=== PATIENT | female | born 1965 | race African-American/Black ===

== ENCOUNTER 2018-12-05 18:02 | Inpatient (IN) | payer BC ==
[2018-12-05] VITALS (8 sets, daily range): BP systolic 179–230; BP diastolic 90–137
[~2018-12-05] VITALS: Ht 162.6 cm; Wt 91.7 kg
[2018-12-05] MEDS ORDERED: 0.9 % SODIUM CHLORIDE 10 ML DISP.SYRIN. IV PRN (19:45)
[2018-12-05] MEDS ORDERED: hydrALAZINE 20 MG/ML VIAL. IV ONE (20:00)
[2018-12-05] MEDS ORDERED: amLODIPine BESYLATE 5 MG TABLET PO ONE (20:00)
[2018-12-05 20:06] LABS: BASO # 0.1 x10^3/uL (0.0-0.2); BASO % 1 % (0-3); EOS # 0.2 x10^3/uL (0.0-0.7); EOS % 2 % (0-3); HEMATOCRIT 45.8 % (36.0-47.0); LYMPH # 3.6 x10^3/uL (1.0-4.8); LYMPH % 34 % (24-48); MEAN CORPUSCULAR HEMOGLOBIN 27 pg (25-35); MEAN CORPUSCULAR HGB CONC 33 g/dL (31-37); MEAN CORPUSCULAR VOLUME 83 fL (79-100); MONO # 0.6 x10^3/uL (0.0-1.1); MONO % 6 % (0-9); NEUT # 6.3 x10^3uL (1.8-7.7); NEUT % 58 % (31-73); PLATELET COUNT 231 x10^3/uL (140-400); RED BLOOD COUNT 5.53 x10^6/uL (3.50-5.40); RED CELL DISTRIBUTION WIDTH 15.1 % (11.5-14.5); WHITE BLOOD COUNT 10.9 x10^3/uL (4.0-11.0)
[2018-12-05 20:14] LABS: ALBUMIN/GLOBULIN RATIO 0.9 (1.0-1.7); CALCIUM 9.2 mg/dL (8.5-10.1); CREATININE 1.1 mg/dL (0.6-1.0); GFR 63.1; POTASSIUM 3.3 mmol/L (3.5-5.1); TOTAL BILIRUBIN 0.4 mg/dL (0.2-1.0); TOTAL PROTEIN 8.6 g/dL (6.4-8.2)
[2018-12-05 20:42] LABS: AMORPHOUS SEDIMENT,UR PRESENT /HPF; BACTERIA,URINE FEW /HPF (0-FEW); BILIRUBIN,URINE NEG (NEG); CLARITY,URINE CLEAR; COLOR,URINE STRAW; GLUCOSE,URINE 500 mg/dL (NEG); NITRITE,URINE POS (NEG); SQUAMOUS EPITHELIAL CELL,UR OCC /LPF; UROBILINOGEN,URINE 0.2 mg/dL (0.2 mg/dL)
--- NOTE | 2018-12-05 21:00 | PHYS DOC ---
Past History Past Medical History: Hypertension, Uterine Fibroids Alcohol Use: None Drug Use: None Adult General Chief Complaint Chief Complaint: HYPERTENSION HPI HPI Patient is a 53 year old female who presents with complaint of high blood pressure. Patient states that she was seen at her primary care physician's office today and was noted to have high blood pressure. Patient states that she was started on metoprolol at that time to to address her blood pressure. Patient states that she is supposed to be taking Norvasc, atenolol, and Maxide, however she has been off this medication for over a month and has not have this addressed during that time. Patient states that currently she is not experiencing headache, vision changes, chest pain, shortness of breath, or unilateral weakness. Due to continued high blood pressure she came to the emergency department to have this addressed. Review of Systems Review of Systems Constitutional: Denies fever or chills [] Eyes: Denies change in visual acuity, redness, or eye pain [] HENT: Denies nasal congestion or sore throat [] Respiratory: Denies cough or shortness of breath [] Cardiovascular: Denies chest pain or edema[] GI: Denies abdominal pain, nausea, vomiting, bloody stools or diarrhea [] : Denies dysuria or hematuria [] Musculoskeletal: Denies back pain or joint pain [] Integument: Denies rash or skin lesions [] Neurologic: Denies headache, focal weakness or sensory changes [] All other systems were reviewed and found to be within normal limits, except as documented in this note. Current Medications Current Medications Current Medications Medications (Trade) Dose Ordered Sig/Rei Start Time Stop Time Status Last Admin Dose Admin Amlodipine Besylate (Norvasc) 5 mg 1X ONCE 12/05/18 20:00 12/05/18 20:01 DC 12/05/18 19:54 5 MG Hydralazine HCl (Apresoline) 10 mg 1X ONCE 12/05/18 20:00 12/05/18 20:01 DC 12/05/18 19:54 10 MG Sodium Chloride (Normal Saline Flush) 10 ml QSHIFT PRN 12/05/18 19:45 12/05/18 19:54 10 ML Allergies Allergies Allergies Coded Allergies Type Severity Reaction Last Updated Verified No Known Drug Allergies 12/05/18 No Physical Exam Physical Exam Constitutional: Well developed, well nourished, no acute distress, non-toxic appearance. [] HENT: Normocephalic, atraumatic, bilateral external ears normal, oropharynx moist, no oral exudates, nose normal. [] Eyes: PERRLA, EOMI, conjunctiva normal, no discharge. [] Neck: Normal range of motion, no tenderness, supple, no stridor. [] Cardiovascular:Heart rate regular rhythm, no murmur [] Lungs & Thorax: Bilateral breath sounds clear to auscultation [] Abdomen: Bowel sounds normal, soft, no tenderness, no masses, no pulsatile masses. [] Skin: Warm, dry, no erythema, no rash. [] Back: No tenderness, no CVA tenderness. [] Extremities: No tenderness, no cyanosis, no clubbing, ROM intact, no edema. [] Neurologic: Alert and oriented X 3, normal motor function, normal sensory function, no focal deficits noted. [] Current Patient Data Vital Signs Vital Signs Date Time Temp Pulse Resp B/P (MAP) Pulse Ox O2 Delivery O2 Flow Rate FiO2 12/05/18 19:54 93 235/104 12/05/18 19:00 98.6 16 98 Room Air Lab Results Laboratory Tests Test 12/05/18 19:34 White Blood Count 10.9 x10^3/uL (4.0-11.0) Red Blood Count 5.53 x10^6/uL (3.50-5.40) H Hemoglobin 15.0 g/dL (12.0-15.5) Hematocrit 45.8 % (36.0-47.0) Mean Corpuscular Volume 83 fL (79-100) Mean Corpuscular Hemoglobin 27 pg (25-35) Mean Corpuscular Hemoglobin Concent 33 g/dL (31-37) Red Cell Distribution Width 15.1 % (11.5-14.5) H Platelet Count 231 x10^3/uL (140-400) Neutrophils (%) (Auto) 58 % (31-73) Lymphocytes (%) (Auto) 34 % (24-48) Monocytes (%) (Auto) 6 % (0-9) Eosinophils (%) (Auto) 2 % (0-3) Basophils (%) (Auto) 1 % (0-3) Neutrophils # (Auto) 6.3 x10^3uL (1.8-7.7) Lymphocytes # (Auto) 3.6 x10^3/uL (1.0-4.8) Monocytes # (Auto) 0.6 x10^3/uL (0.0-1.1) Eosinophils # (Auto) 0.2 x10^3/uL (0.0-0.7) Basophils # (Auto) 0.1 x10^3/uL (0.0-0.2) Urine Collection Type Unknown Urine Color Straw Urine Clarity Clear Urine pH 6.5 Urine Specific [place] 1.025 Urine Protein >100 mg/dl (NEG-TRACE) Urine Glucose (UA) 500 mg/dL (NEG) Urine Ketones (Stick) Neg mg/dL (NEG) Urine Blood Small (NEG) Urine Nitrite Pos (NEG) Urine Bilirubin Neg (NEG) Urine Urobilinogen Dipstick 0.2 mg/dL (0.2 mg/dL) Urine Leukocyte Esterase Neg (NEG) Urine RBC 1-2 /HPF (0-2) Urine WBC 1-4 /HPF (0-4) Urine Squamous Epithelial Cells Occ /LPF Urine Amorphous Sediment Present /HPF Urine Bacteria Few /HPF (0-FEW) Urine Mucus Slight /LPF Sodium Level 137 mmol/L (136-145) Potassium Level 3.3 mmol/L (3.5-5.1) L Chloride Level 100 mmol/L (98-107) Carbon Dioxide Level 25 mmol/L (21-32) Anion Gap 12 (6-14) Blood Urea Nitrogen 20 mg/dL (7-20) Creatinine 1.1 mg/dL (0.6-1.0) H Estimated GFR (Cockcroft-Gault) 63.1 BUN/Creatinine Ratio 18 (6-20) Glucose Level 228 mg/dL (70-99) H Calcium Level 9.2 mg/dL (8.5-10.1) Total Bilirubin 0.4 mg/dL (0.2-1.0) Aspartate Amino Transferase (AST) 16 U/L (15-37) Alanine Aminotransferase (ALT) 29 U/L (14-59) Alkaline Phosphatase 113 U/L (46-116) Total Protein 8.6 g/dL (6.4-8.2) H Albumin 4.0 g/dL (3.4-5.0) Albumin/Globulin Ratio 0.9 (1.0-1.7) L EKG EKG Interpreted by me: Heart rate 88, sinus rhythm, normal intervals, leftward axis , no acute ST/T-wave abnormalities present[] Radiology/Procedures Radiology/Procedures Not performed[] Course & Med Decision Making Course & Med Decision Making Pertinent Labs and Imaging studies reviewed. (See chart for details) Patient given IV hydralazine and oral Norvasc in the emergency department. Despite treatment, repeat blood pressure check is 197/113. The patient's blood pressure maintains that critical levels, thus patient was initiated on Cardene drip to control blood pressure. I spoke with Dr. Carnes who accepted care of patient in hospital for continued treatment of accelerated hypertension. Patient also found have evidence of urinary tract infection and started on Rocephin for treatment. Critical care time excluding procedures: 45 minutes Dragon Disclaimer Dragon Disclaimer This electronic medical record was generated, in whole or in part, using a voice recognition dictation system. Departure Departure: Impression: Primary Impression: Accelerated hypertension Additional Impression: Urinary tract infection Disposition: 09 ADMITTED INPATIENT Admitting Physician: Lucius Carnes Condition: GUARDED Referrals: NON,STAFF (PCP) Problem Qualifiers Additional Impression: Urinary tract infection Urinary tract infection type: site unspecified Hematuria presence: without hematuria Qualified Codes: N39.0 - Urinary tract infection, site not specified COURTNEY FLORES MD Dec 05, 2018 21:00
[2018-12-05] MEDS ORDERED: ACETAMINOPHEN 325 MG TABLET PO PRN (21:15)
[2018-12-05] MEDS ORDERED: ONDANSETRON PF 4 MG/2 ML VIAL. IV PRN (21:15)
[2018-12-05] MEDS ORDERED: IV NORMAL SALINE 50ML 50 ML ONE (21:31)
[2018-12-05] MEDS ORDERED: cefTRIAXone SODIUM 1 GM VIAL IV ONE (21:31)
[2018-12-05] MEDS: IV NORMAL SALINE 1,000ML 1,000 ML IV SCH (21:38)
[2018-12-05] MEDS ORDERED: POTASSIUM CHLORIDE 20 MEQ TABLET.ER. PO ONE (23:15)
[2018-12-06] VITALS (35 sets, daily range): BP systolic 149–199; BP diastolic 69–110
[2018-12-06] MEDS ORDERED: TRAM50TA PO (00:04)
[2018-12-06] MEDS ORDERED: ATEN25TA42 PO (00:04)
[2018-12-06] MEDS ORDERED: TEMA15CA PO (00:04)
[2018-12-06] MEDS ORDERED: ESOM40CA PO (00:04)
[2018-12-06] MEDS ORDERED: TRIA1CAP3 PO (00:04)
[2018-12-06] MEDS ORDERED: AMLO10TA6 PO (00:04)
[2018-12-06 06:46] LABS: BASO # 0.1 x10^3/uL (0.0-0.2); BASO % 1 % (0-3); CALCIUM 8.9 mg/dL (8.5-10.1); EOS # 0.2 x10^3/uL (0.0-0.7); EOS % 2 % (0-3); GFR 70.5; HEMATOCRIT 42.5 % (36.0-47.0); HEMOGLOBIN 14.1 g/dL (12.0-15.5); LYMPH # 3.8 x10^3/uL (1.0-4.8); LYMPH % 32 % (24-48); MEAN CORPUSCULAR HEMOGLOBIN 27 pg (25-35); MEAN CORPUSCULAR HGB CONC 33 g/dL (31-37); MEAN CORPUSCULAR VOLUME 83 fL (79-100); MONO # 0.8 x10^3/uL (0.0-1.1); MONO % 7 % (0-9); NEUT # 6.8 x10^3uL (1.8-7.7); NEUT % 58 % (31-73); PLATELET COUNT 209 x10^3/uL (140-400); POTASSIUM 3.6 mmol/L (3.5-5.1); RED BLOOD COUNT 5.15 x10^6/uL (3.50-5.40); RED CELL DISTRIBUTION WIDTH 15.5 % (11.5-14.5); WHITE BLOOD COUNT 11.6 x10^3/uL (4.0-11.0)
[2018-12-06] MEDS ORDERED: HYDR-2155 PO (07:22)
[2018-12-06] MEDS: PANTOPRAZOLE 40 MG TABLET. PO SCH (07:46)
[2018-12-06] MEDS: HYDROcodone/APAP 5/325MG 1 TAB TABLET PO PRN ×3 (07:46→20:31)
[2018-12-06] MEDS ORDERED: amLODIPine BESYLATE 10 MG TABLET PO SCH (09:00)
[2018-12-06] MEDS: TRIAMTERENE/HCTZ 37.5/25MG TABLET. PO SCH ×2 (09:00→19:23)
[2018-12-06] MEDS: IV NORMAL SALINE 1,000ML 1,000 ML IV SCH (10:21)
[2018-12-06] MEDS ORDERED: CARVEDILOL 12.5 MG TABLET PO SCH (10:45)
[2018-12-06] MEDS ORDERED: LISINOPRIL 10 MG TABLET PO SCH (11:15)
[2018-12-06] MEDS: LABETALOL HCL 200 MG TABLET PO SCH ×2 (11:15→20:32)
[2018-12-06] MEDS ORDERED: DEXTROSE 50% 25 GM / 50ML DISP.SYRIN. IV PRN (11:15)
--- NOTE | 2018-12-06 11:28 | RAD ---
Chest, 2 views, 12/06/2018: HISTORY: Malignant hypertension Comparison is made to a study from 07/08/2011. The heart is at the upper limits of normal in size. The pulmonary vascularity is normal. A small unchanged left perihilar nodule is probably a granuloma. No pulmonary infiltrate is seen. There is no evidence of pleural fluid. Moderate hypertrophic spurring is present in the spine. IMPRESSION: No acute cardiopulmonary abnormality is detected. Electronically signed by: Josh Sevilla MD (12/06/2018 11:24 AM) [facility]
[2018-12-06] MEDS: INSULIN LISPRO 300 UNITS/3 ML INSULN.PEN. SQ SCH ×2 (12:35→17:56)
--- NOTE | 2018-12-06 12:42 | RAD ---
Renal ultrasound, 12/06/2018: HISTORY: Accelerated hypertension The right kidney measures 12.1 cm in length while the left kidney measures 11.3 cm. There is no evidence of hydronephrosis or a renal mass. No abnormal perinephric process is seen. The bladder is collapsed and not adequately delineated. IMPRESSION: No significant renal abnormality is detected. Electronically signed by: Josh Sevilla MD (12/06/2018 12:38 PM) [facility]
--- NOTE | 2018-12-06 16:37 | CARD ---
MR#: [id number] Date of Study: 12/06/2018 Ordering Physician: JAMILAH NELSON, Referring Physician: JAMILAH NELSON, Tech: Estefany Urbina RDCS APPROVED REPORT EXAM: Two-dimensional and M-mode echocardiogram with Doppler and color Doppler. Other Information Quality : Good INDICATION Hypertension/HCVD 2D DIMENSIONS RVDd1.9 (2.9-3.5cm)Left Atrium(2D)3.2 (1.6-4.0cm) IVSd1.3 (0.7-1.1cm)Aortic Root(2D)2.8 (2.0-3.7cm) LVDd4.4 (3.9-5.9cm)LVOT Diameter1.9 (1.8-2.4cm) PWd1.0 (0.7-1.1cm)LVDs3.1 (2.5-4.0cm) FS (%) 30.9 %SV52.3 ml LVEF(%)58.7 (>50%) Aortic Valve AoV Peak Favian.193.0cm/sAoV VTI36.4cm AO Peak GR.14.9mmHgLVOT Peak Favian.138.1cm/s LVOT VTI 26.11cmAO Mean GR.8mmHg LES (VMAX)2.89kw3PCP (VTI)2.01cm2 AI P 1/2 Afyt909nj Mitral Valve MV E Kbpjttuh990.6cm/sMV DECEL ZEDI164wj MV A Gqbcasio696.1cm/sE/A Ratio0.8 Tricuspid Valve TR P. Jhlnrqrd783gj/sRAP CPIHJUPO9nvRz TR Peak Gr.31owCvLSPZ61vsAw Pulmonary Vein S1 Znendhqu82.7cm/sD2 Nsgmovbg37.0cm/s LEFT VENTRICLE The left ventricle is normal size. There is mild concentric left ventricular hypertrophy. The left ve ntricular systolic function is normal and the ejection fraction is within normal range. The Ejection Fraction is 55-60%. There is normal LV segmental wall motion. Transmitral Doppler flow pattern is Gra de I-abnormal relaxation pattern. RIGHT VENTRICLE The right ventricle is normal size. The right ventricular systolic function is normal. ATRIA The left atrium size is normal. The right atrium size is normal. The interatrial septum is intact wit h no evidence for an atrial septal defect or patent foramen ovale as noted on 2-D or Doppler imaging. AORTIC VALVE The aortic valve is calcified but opens well. Doppler and Color Flow revealed trace to mild aortic re gurgitation. There is no significant aortic valvular stenosis. MITRAL VALVE The mitral valve is normal in structure and function. There is no evidence of mitral valve prolapse. There is no mitral valve stenosis. Doppler and Color-flow revealed mild mitral regurgitation. TRICUSPID VALVE The tricuspid valve is normal in structure and function. Doppler and Color Flow revealed trace tricus pid regurgitation. The PA pressure was estimated at 30 mmHg. There is no tricuspid valve stenosis. PULMONIC VALVE The pulmonic valve is not well visualized. Doppler and Color Flow revealed no pulmonic valvular regur gitation. There is no pulmonic valvular stenosis. GREAT VESSELS The aortic root is normal in size. The ascending aorta is mildly dilated at 3.5 cm. The IVC is normal in size and collapses >50% with inspiration. PERICARDIAL EFFUSION There is no evidence of significant pericardial effusion. Critical Notification Critical Value: No <Conclusion> The left ventricle is normal size. The left ventricular systolic function is normal and the ejection fraction is within normal range. The Ejection Fraction is 55-60%. There is mild concentric left ventricular hypertrophy. There is no significant aortic valvular stenosis. Doppler and Color Flow revealed trace to mild aortic regurgitation. Doppler and Color-flow revealed mild mitral regurgitation. Doppler and Color Flow revealed trace tricuspid regurgitation. The PA pressure was estimated at 30 mmHg. Signed by : Mac Etienne MD Electronically Approved : 12/06/2018 16:35:28
--- NOTE | 2018-12-06 16:42 | PDOC2 ---
PENNIEYASMIN Sergio BUSINESS CONTINUITY DIRECTOR 12/06/18 1642: CONSULT Date of Admission DATE: 12/06/18 TIME: 0900 Problem List Problems Medical Problems: (1) Accelerated hypertension Status: Acute (2) Urinary tract infection Status: Acute History of Present Illness Ms Rodriguez is a 53 year old female with history of hypertension. She reports no home meds for 3 months. Prior to that she reports pressures in the 150s systolic. She complains of recurrent headaches due to neck and back problems. She is currently on cardene and resting quietly. She denies chest pain. She reports dyspnea with exertion on 1 flight of steps which is worsened from 6 montis ago. She denies lightheadedness or syncope. She reports occasional edema in legs after standing all day. Past Medical History Remote history of Toxicity with 1st Cardiovascular: HTN, hyperipidemia CENTRAL NERVOUS SYSTEM: Migraine GI: GERD Renal/: UTI Past Surgical History partial hysterectomy and exploratory lap Family History no significant premature CAD in 1st degree relatives. Social History no smoking, no significant etoh no illicit drugs Current Medications Current Medications Sodium Chloride (Normal Saline Flush) 10 ml QSHIFT PRN IV AFTER MEDS AND BLOOD DRAWS Last administered on 12/05/18at 19:54; Start 12/05/18 at 19:45 Hydralazine HCl (Apresoline) 10 mg 1X ONCE IV Last administered on 12/05/18at 19:54; Start 12/05/18 at 20:00; Stop 12/05/18 at 20:01; Status DC Amlodipine Besylate (Norvasc) 5 mg 1X ONCE PO Last administered on 12/05/18at 19:54; Start 12/05/18 at 20:00; Stop 12/05/18 at 20:01; Status DC Nicardipine HCl 50 mg/Sodium Chloride 270 ml @ 27 mls/hr CONT PRN IV SEE I/O RECORD Last administered on 12/05/18at 22:49; Start 12/05/18 at 22:00 Ondansetron HCl (Zofran) 4 mg PRN Q4HRS PRN IV NAUSEA/VOMITING; Start 12/05/18 at 21:15; Stop 12/06/18 at 21:14 Sodium Chloride 1,000 ml @ 75 mls/hr [id number] IV Last administered on at 21:38; Start 12/05/18 at 21:01; Stop 12/06/18 at 13:40; Status DC Acetaminophen (Tylenol) 650 mg PRN Q4HRS PRN PO FEVER Last administered on 12/05at 23:18; Start 12/05/18 at 21:15; Stop 12/06/18 at 21:14 Ceftriaxone Sodium 1 gm/ Sodium Chloride 50 ml @ 100 mls/hr Q24H IV Last administered on 12/05/18at 21:38; Start 12/05/18 at 22:00; Stop 12/06/18 at 11:17 ; Status DC Ceftriaxone Sodium 1 gm/ Sodium Chloride 50 ml @ 100 mls/hr 1X ONCE IV ; Start 12/05/18 at 21:30; Stop 12/05/18 at 21:59; Status Cancel Sodium Chloride 50 ml @ As Directed STK-MED ONCE .ROUTE ; Start 12/05/18 at 21: 31; Stop 12/05/18 at 21:33; Status DC Ceftriaxone Sodium (Rocephin) 1 gm STK-MED ONCE IV ; Start 12/05/18 at 21:31; Stop 12/05/18 at 21:33; Status DC Potassium Chloride (Klor-Con) 40 meq 1X ONCE PO Last administered on at 23:18; Start 12/05/18 at 23:15; Stop 12/05/18 at 23:16; Status DC Acetaminophen/ Hydrocodone Bitart (Lortab 5/325) 1 tab PRN Q6HRS PRN PO PAIN Last administered on 12/06/18at 13:24; Start 12/06/18 at 07:30 Tramadol HCl (Ultram) 50 mg PRN Q6HRS PRN PO PAIN; Start 12/06/18 at 07:30 Pantoprazole Sodium (Protonix) 40 mg DAILYAC PO Last administered on 12/06/18at 07:46; Start 12/06/18 at 07:30 Temazepam (Restoril) 15 mg QHS PO ; Start 12/06/18 at 21:00 Atenolol (Tenormin) 25 mg HS PO ; Start 12/06/18 at 21:00; Stop 12/06/18 at 21: 00; Status DC Amlodipine Besylate (Norvasc) 10 mg DAILY PO ; Start 12/06/18 at 09:00; Stop at 11:16; Status DC Triamterene/HCTZ (Maxzide 37.5/ 25mg) 1 tab DAILY PO ; Start 12/06/18 at 09:00 Carvedilol (Coreg) 12.5 mg BIDWMEALS PO ; Start 12/06/18 at 10:45; Stop at 11:16; Status DC Hydralazine HCl (Apresoline) 10 mg PRN Q4HRS PRN IV ELEVATED BP, SEE COMMENTS; Start 12/06/18 at 10:45 Labetalol HCl (Trandate) 200 mg BID PO Last administered on 12/06/18at 11:15; Start 12/06/18 at 11:15 Lisinopril (Prinivil) 10 mg DAILY PO Last administered on 12/06/18at 11:36; Start 12/06/18 at 11:15 Insulin Human Lispro (HumaLOG) 0-7 UNITS TIDWMEALS SQ Last administered on 12/06at 12:35; Start 12/06/18 at 12:00 Dextrose 12.5 gm PRN Q15MIN PRN IV SEE COMMENTS; Start 12/06/18 at 11:15 Metoprolol Succinate (Toprol Xl) 100 mg BID PO ; Start 12/06/18 at 21:00; Stop 12/06/18 at 21:00; Status DC Active Scripts Active Reported Hydrocodone-Apap 5-325 (Hydrocodone Bit/Acetaminophen) 1 Each Tablet 1 Tab PO PRN Q6HRS PRN Tramadol Hcl (Tramadol HCl) 50 Mg Tablet 50 Mg PO PRN Q6HRS PRN LAST DOSE GIVEN: DATE: TIME: NEXT DOSE DUE: DATE: TIME: Nexium Capsule (Esomeprazole Magnesium) 40 Mg Capsule.dr 40 Mg PO DAILY LAST DOSE GIVEN: DATE: TIME: NEXT DOSE DUE: DATE: TIME: Temazepam 15 Mg Capsule 15 Mg PO QHS LAST DOSE GIVEN: DATE: TIME: NEXT DOSE DUE: DATE: TIME: Triamterene-Hctz 37.5-25 Mg Cp (Triamterene/Hydrochlorothiazid) 1 Each Capsule 1 Cap PO DAILY LAST DOSE GIVEN: DATE: TIME: NEXT DOSE DUE: DATE: TIME: Amlodipine Besylate 10 Mg Tablet 10 Mg PO DAILY LAST DOSE GIVEN: DATE: TIME: NEXT DOSE DUE: DATE: TIME: Atenolol (Atenolol) 25 Mg Tablet 25 Mg PO HS LAST DOSE GIVEN: DATE: TIME: NEXT DOSE DUE: DATE: TIME: Allergies: Coded Allergies: No Known Drug Allergies (Unverified , 12/06/18) Review of System as per HPI or negative General: Alert, Oriented X3, Cooperative, No acute distress HEENT: Atraumatic, EOMI Lungs: Clear to auscultation, Normal air movement Heart: Normal S1, Normal S2, Other (no gallops, cliocks or rubs) Extremities: No cyanosis, No edema, Normal pulses Neuro: Normal speech, Strength at 5/5 X4 ext Psych/Mental Status: Mental status NL, Mood NL VITALS Vital Signs Date Time Temp Pulse Resp B/P (MAP) Pulse Ox O2 Delivery O2 Flow Rate FiO2 12/06/18 14:30 82 18 168/94 (118) 97 Room Air 12/06/18 11:30 98.1 Labs Laboratory Tests Test 12/05/18 19:34 12/06/18 05:57 12/06/18 12:26 White Blood Count 10.9 x10^3/uL (4.0-11.0) 11.6 x10^3/uL (4.0-11.0) Red Blood Count 5.53 x10^6/uL (3.50-5.40) 5.15 x10^6/uL (3.50-5.40) Hemoglobin 15.0 g/dL (12.0-15.5) 14.1 g/dL (12.0-15.5) Hematocrit 45.8 % (36.0-47.0) 42.5 % (36.0-47.0) Mean Corpuscular Volume 83 fL (79-100) 83 fL (79-100) Mean Corpuscular Hemoglobin 27 pg (25-35) 27 pg (25-35) Mean Corpuscular Hemoglobin Concent 33 g/dL (31-37) 33 g/dL (31-37) Red Cell Distribution Width 15.1 % (11.5-14.5) 15.5 % (11.5-14.5) Platelet Count 231 x10^3/uL (140-400) 209 x10^3/uL (140-400) Neutrophils (%) (Auto) 58 % (31-73) 58 % (31-73) Lymphocytes (%) (Auto) 34 % (24-48) 32 % (24-48) Monocytes (%) (Auto) 6 % (0-9) 7 % (0-9) Eosinophils (%) (Auto) 2 % (0-3) 2 % (0-3) Basophils (%) (Auto) 1 % (0-3) 1 % (0-3) Neutrophils # (Auto) 6.3 x10^3uL (1.8-7.7) 6.8 x10^3uL (1.8-7.7) Lymphocytes # (Auto) 3.6 x10^3/uL (1.0-4.8) 3.8 x10^3/uL (1.0-4.8) Monocytes # (Auto) 0.6 x10^3/uL (0.0-1.1) 0.8 x10^3/uL (0.0-1.1) Eosinophils # (Auto) 0.2 x10^3/uL (0.0-0.7) 0.2 x10^3/uL (0.0-0.7) Basophils # (Auto) 0.1 x10^3/uL (0.0-0.2) 0.1 x10^3/uL (0.0-0.2) Urine Collection Type Unknown Urine Color Straw Urine Clarity Clear Urine pH 6.5 Urine Specific [place] 1.025 Urine Protein >100 mg/dl (NEG-TRACE) Urine Glucose (UA) 500 mg/dL (NEG) Urine Ketones (Stick) Neg mg/dL (NEG) Urine Blood Small (NEG) Urine Nitrite Pos (NEG) Urine Bilirubin Neg (NEG) Urine Urobilinogen Dipstick 0.2 mg/dL (0.2 mg/dL) Urine Leukocyte Esterase Neg (NEG) Urine RBC 1-2 /HPF (0-2) Urine WBC 1-4 /HPF (0-4) Urine Squamous Epithelial Cells Occ /LPF Urine Amorphous Sediment Present /HPF Urine Bacteria Few /HPF (0-FEW) Urine Mucus Slight /LPF Sodium Level 137 mmol/L (136-145) 137 mmol/L (136-145) Potassium Level 3.3 mmol/L (3.5-5.1) 3.6 mmol/L (3.5-5.1) Chloride Level 100 mmol/L (98-107) 102 mmol/L (98-107) Carbon Dioxide Level 25 mmol/L (21-32) 24 mmol/L (21-32) Anion Gap 12 (6-14) 11 (6-14) Blood Urea Nitrogen 20 mg/dL (7-20) 17 mg/dL (7-20) Creatinine 1.1 mg/dL (0.6-1.0) 1.0 mg/dL (0.6-1.0) Estimated GFR (Cockcroft-Gault) 63.1 70.5 BUN/Creatinine Ratio 18 (6-20) Glucose Level 228 mg/dL (70-99) 223 mg/dL (70-99) Calcium Level 9.2 mg/dL (8.5-10.1) 8.9 mg/dL (8.5-10.1) Total Bilirubin 0.4 mg/dL (0.2-1.0) Aspartate Amino Transf (AST/SGOT) 16 U/L (15-37) Alanine Aminotransferase (ALT/SGPT) 29 U/L (14-59) Alkaline Phosphatase 113 U/L (46-116) Total Protein 8.6 g/dL (6.4-8.2) Albumin 4.0 g/dL (3.4-5.0) Albumin/Globulin Ratio 0.9 (1.0-1.7) Creatine Kinase 96 U/L (26-192) Troponin I Quantitative 0.019 ng/mL (0-0.055) Triglycerides Level 221 mg/dL (0-150) Cholesterol Level 227 mg/dL (0-200) LDL Cholesterol, Calculated 150 mg/dL (0-100) VLDL Cholesterol, Calculated 44 mg/dL (0-40) Non-HDL Cholesterol Calculated 194 mg/dL (0-129) HDL Cholesterol 33 mg/dL (40-60) Cholesterol/HDL Ratio 6.0 Glucose (Fingerstick) 267 mg/dL (70-99) Images CXR- no acute abn Assessment/Plan accelerated hypertension secondary to noncompliance with medication. Suggest change to labetalol. Continue ARB and check echo. Titrate off cardene as tolerated. LINO VILLA MD 12/06/18 1723: CONSULT Assessment/Plan Patient seen and examined. Agree with above nurse practitioner note. 53-year-old woman with uncontrolled hypertension likely due to lack of resources and not taking her medications. Blood pressures been better controlled since initiation of labetalol and lisinopril. Continue up titration as tolerated. Likely able to discharge tomorrow if systolic blood pressure mostly less than 160 with continued outpatient titration. Thank you for this consultation. Please call with questions. YASMIN CASPER APRN Dec 06, 2018 16:42 LINO VILLA MD Dec 06, 2018 17:23
[2018-12-06] MEDS: hydrALAZINE 20 MG/ML VIAL. IV PRN (17:55)
[2018-12-06 19:10] LABS: HEMOGLOBIN A1C 7.8 % (4.8-5.6)
[2018-12-06] MEDS: traMADol 50 MG TABLET PO PRN (19:12)
[2018-12-06] MEDS: LISINOPRIL 10 MG TABLET PO SCH (20:31)
--- NOTE | 2018-12-06 20:59 | PN ---
DATE: SUBJECTIVE: The patient is delightful 53-year-old female came in with accelerated hypertension. Blood pressure in the Emergency Room 235/104, pulse of 93, afebrile. The patient for the most part feeling a little dizzy, but no headaches. She was originally seen in the office and transferred immediately to the Emergency Room for care. The patient was admitted and placed on a nicardipine drip. Echocardiograms and renal ultrasounds were obtained as well as a Cardiology consult. We will go ahead and continue to monitor the patient in the ICU. She is doing better. OBJECTIVE: VITAL SIGNS: Blood pressure has come down gradually as we walk. Otherwise, the patient is alert and oriented. LUNGS: Clear. CARDIOVASCULAR: Regular sinus rhythm. ABDOMEN: Soft, nontender. EXTREMITIES: No clubbing, cyanosis, nor edema. NEUROLOGIC: She is alert, oriented and in excellent spirits. PLAN: We will continue to monitor the patient accordingly. Potassium was a little bit low at 3.3, blood sugar newly diagnosed with diabetes as in the 200s. We will go ahead and continue to monitor the patient and currently make further evaluation on her as indicated per those results. IMPRESSION: Hypertensive emergency or hypertensive urgency, type 2 diabetes, new onset, hypokalemia and proteinuria. The patient will be instructed on uncontrolled of blood pressure as well as her diabetes and make further evaluation here in the ICU. JAMILAH NELSON MD DR: RICHARD/nick JOB#: [id number] / [id number]
[2018-12-06] MEDS ORDERED: ATENOLOL 25 MG TABLET PO SCH (21:00)
[2018-12-06] MEDS ORDERED: TEMAZEPAM 15 MG CAPSULE PO SCH (21:00)
[2018-12-06] MEDS ORDERED: METOPROLOL SUCC 24HR ER 50 MG TAB.ER.24H. PO SCH (21:00)
[2018-12-07] VITALS (31 sets, daily range): BP systolic 128–224; BP diastolic 64–110
[2018-12-07] MEDS ORDERED: ONDANSETRON PF 4 MG/2 ML VIAL. IV PRN ×2 (00:15→20:00)
--- NOTE | 2018-12-07 06:12 | EKG ---
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
[2018-12-07] MEDS: hydrALAZINE 20 MG/ML VIAL. IV PRN ×2 (06:36→22:23)
[2018-12-07] MEDS: HYDROcodone/APAP 5/325MG 1 TAB TABLET PO PRN (07:57)
[2018-12-07] MEDS: PANTOPRAZOLE 40 MG TABLET. PO SCH (07:57)
[2018-12-07] MEDS: LISINOPRIL 10 MG TABLET PO SCH ×2 (08:56→20:28)
[2018-12-07] MEDS: INSULIN LISPRO 300 UNITS/3 ML INSULN.PEN. SQ SCH ×2 (08:57→12:07)
[2018-12-07] MEDS: LABETALOL HCL 200 MG TABLET PO SCH ×2 (08:57→23:00)
--- NOTE | 2018-12-07 10:21 | PDOC ---
PROGRESS NOTES Diagnosis Problem Problems Medical Problems: (1) Accelerated hypertension Status: Acute (2) Urinary tract infection Status: Acute Assessment Problems Medical Problems: (1) Accelerated hypertension Status: Acute (2) Urinary tract infection Status: Acute accelerated htn - off cardene drip, pressure elevated again this am. maximize lisinopril and add scheduled hydralazine SAMANTHA - consider CPAP set auto titrate if possible during HS Subjective woke with headache, no chest pian, no dyspnea, no lightheadedness Objective Vital Signs Date Time Temp Pulse Resp B/P (MAP) Pulse Ox O2 Delivery O2 Flow Rate FiO2 12/07/18 08:57 84 133/74 12/07/18 07:57 16 Room Air 12/07/18 05:00 97.0 99 12/06/18 23:11 98.0 Intake and Output 12/07/18 07:01 Intake Total 2250 ml Output Total 1600 ml Balance 650 ml Intake Oral 1250 ml IV Total 1000 ml Output Urine Total 1500 ml Emesis 100 ml Physical Exam gen alert oritented, no acute distress CV rrr, no s3s4 lungs CTA abd nontender, + bowel sounds ext no edema Review of Relevant I have reviewed the following items libby (where applicable) has been applied. Labs Laboratory Tests Test 12/05/18 19:34 12/05/18 22:45 12/06/18 05:57 12/06/18 12:26 White Blood Count 10.9 x10^3/uL (4.0-11.0) 11.6 x10^3/uL (4.0-11.0) Red Blood Count 5.53 x10^6/uL (3.50-5.40) 5.15 x10^6/uL (3.50-5.40) Hemoglobin 15.0 g/dL (12.0-15.5) 14.1 g/dL (12.0-15.5) Hematocrit 45.8 % (36.0-47.0) 42.5 % (36.0-47.0) Mean Corpuscular Volume 83 fL (79-100) 83 fL (79-100) Mean Corpuscular Hemoglobin 27 pg (25-35) 27 pg (25-35) Mean Corpuscular Hemoglobin Concent 33 g/dL (31-37) 33 g/dL (31-37) Red Cell Distribution Width 15.1 % (11.5-14.5) 15.5 % (11.5-14.5) Platelet Count 231 x10^3/uL (140-400) 209 x10^3/uL (140-400) Neutrophils (%) (Auto) 58 % (31-73) 58 % (31-73) Lymphocytes (%) (Auto) 34 % (24-48) 32 % (24-48) Monocytes (%) (Auto) 6 % (0-9) 7 % (0-9) Eosinophils (%) (Auto) 2 % (0-3) 2 % (0-3) Basophils (%) (Auto) 1 % (0-3) 1 % (0-3) Neutrophils # (Auto) 6.3 x10^3uL (1.8-7.7) 6.8 x10^3uL (1.8-7.7) Lymphocytes # (Auto) 3.6 x10^3/uL (1.0-4.8) 3.8 x10^3/uL (1.0-4.8) Monocytes # (Auto) 0.6 x10^3/uL (0.0-1.1) 0.8 x10^3/uL (0.0-1.1) Eosinophils # (Auto) 0.2 x10^3/uL (0.0-0.7) 0.2 x10^3/uL (0.0-0.7) Basophils # (Auto) 0.1 x10^3/uL (0.0-0.2) 0.1 x10^3/uL (0.0-0.2) Urine Collection Type Unknown Urine Color Straw Urine Clarity Clear Urine pH 6.5 Urine Specific [place] 1.025 Urine Protein >100 mg/dl (NEG-TRACE) Urine Glucose (UA) 500 mg/dL (NEG) Urine Ketones (Stick) Neg mg/dL (NEG) Urine Blood Small (NEG) Urine Nitrite Pos (NEG) Urine Bilirubin Neg (NEG) Urine Urobilinogen Dipstick 0.2 mg/dL (0.2 mg/dL) Urine Leukocyte Esterase Neg (NEG) Urine RBC 1-2 /HPF (0-2) Urine WBC 1-4 /HPF (0-4) Urine Squamous Epithelial Cells Occ /LPF Urine Amorphous Sediment Present /HPF Urine Bacteria Few /HPF (0-FEW) Urine Mucus Slight /LPF Sodium Level 137 mmol/L (136-145) 137 mmol/L (136-145) Potassium Level 3.3 mmol/L (3.5-5.1) 3.6 mmol/L (3.5-5.1) Chloride Level 100 mmol/L (98-107) 102 mmol/L (98-107) Carbon Dioxide Level 25 mmol/L (21-32) 24 mmol/L (21-32) Anion Gap 12 (6-14) 11 (6-14) Blood Urea Nitrogen 20 mg/dL (7-20) 17 mg/dL (7-20) Creatinine 1.1 mg/dL (0.6-1.0) 1.0 mg/dL (0.6-1.0) Estimated GFR (Cockcroft-Gault) 63.1 70.5 BUN/Creatinine Ratio 18 (6-20) Glucose Level 228 mg/dL (70-99) 223 mg/dL (70-99) Calcium Level 9.2 mg/dL (8.5-10.1) 8.9 mg/dL (8.5-10.1) Total Bilirubin 0.4 mg/dL (0.2-1.0) Aspartate Amino Transf (AST/SGOT) 16 U/L (15-37) Alanine Aminotransferase (ALT/SGPT) 29 U/L (14-59) Alkaline Phosphatase 113 U/L (46-116) Total Protein 8.6 g/dL (6.4-8.2) Albumin 4.0 g/dL (3.4-5.0) Albumin/Globulin Ratio 0.9 (1.0-1.7) Nasal Screen MRSA (PCR) Negative (Negative) Hemoglobin A1c 7.8 % (4.8-5.6) Creatine Kinase 96 U/L (26-192) Troponin I Quantitative 0.019 ng/mL (0-0.055) Triglycerides Level 221 mg/dL (0-150) Cholesterol Level 227 mg/dL (0-200) LDL Cholesterol, Calculated 150 mg/dL (0-100) VLDL Cholesterol, Calculated 44 mg/dL (0-40) Non-HDL Cholesterol Calculated 194 mg/dL (0-129) HDL Cholesterol 33 mg/dL (40-60) Cholesterol/HDL Ratio 6.0 Glucose (Fingerstick) 267 mg/dL (70-99) Test 12/06/18 17:31 12/06/18 23:40 12/07/18 08:05 Glucose (Fingerstick) 232 mg/dL (70-99) 167 mg/dL (70-99) 179 mg/dL (70-99) Medications Current Medications Sodium Chloride (Normal Saline Flush) 10 ml QSHIFT PRN IV AFTER MEDS AND BLOOD DRAWS Last administered on 12/05/18at 19:54; Start 12/05/18 at 19:45 Hydralazine HCl (Apresoline) 10 mg 1X ONCE IV Last administered on 12/05/18at 19:54; Start 12/05/18 at 20:00; Stop 12/05/18 at 20:01; Status DC Amlodipine Besylate (Norvasc) 5 mg 1X ONCE PO Last administered on 12/05/18at 19:54; Start 12/05/18 at 20:00; Stop 12/05/18 at 20:01; Status DC Nicardipine HCl 50 mg/Sodium Chloride 270 ml @ 27 mls/hr CONT PRN IV SEE I/O RECORD Last administered on 12/05/18at 22:49; Start 12/05/18 at 22:00 Ondansetron HCl (Zofran) 4 mg PRN Q4HRS PRN IV NAUSEA/VOMITING; Start 12/05/18 at 21:15; Stop 12/06/18 at 21:14; Status DC Sodium Chloride 1,000 ml @ 75 mls/hr [id number] IV Last administered on at 21:38; Start 12/05/18 at 21:01; Stop 12/06/18 at 13:40; Status DC Acetaminophen (Tylenol) 650 mg PRN Q4HRS PRN PO FEVER Last administered on 12/05 23:18; Start 12/05/18 at 21:15; Stop 12/06/18 at 21:14; Status DC Ceftriaxone Sodium 1 gm/ Sodium Chloride 50 ml @ 100 mls/hr Q24H IV Last administered on 12/05/18at 21:38; Start 12/05/18 at 22:00; Stop 12/06/18 at 11:17 ; Status DC Ceftriaxone Sodium 1 gm/ Sodium Chloride 50 ml @ 100 mls/hr 1X ONCE IV ; Start 12/05/18 at 21:30; Stop 12/05/18 at 21:59; Status Cancel Sodium Chloride 50 ml @ As Directed STK-MED ONCE .ROUTE ; Start 12/05/18 at 21: 31; Stop 12/05/18 at 21:33; Status DC Ceftriaxone Sodium (Rocephin) 1 gm STK-MED ONCE IV ; Start 12/05/18 at 21:31; Stop 12/05/18 at 21:33; Status DC Potassium Chloride (Klor-Con) 40 meq 1X ONCE PO Last administered on at 23:18; Start 12/05/18 at 23:15; Stop 12/05/18 at 23:16; Status DC Acetaminophen/ Hydrocodone Bitart (Lortab 5/325) 1 tab PRN Q6HRS PRN PO PAIN Last administered on 12/07/18at 07:57; Start 12/06/18 at 07:30 Tramadol HCl (Ultram) 50 mg PRN Q6HRS PRN PO PAIN Last administered on at 19:12; Start 12/06/18 at 07:30 Pantoprazole Sodium (Protonix) 40 mg DAILYAC PO Last administered on 12/07/18at 07:57; Start 12/06/18 at 07:30 Temazepam (Restoril) 15 mg QHS PO Last administered on 12/06/18at 20:32; Start 12/06/18 at 21:00 Atenolol (Tenormin) 25 mg HS PO ; Start 12/06/18 at 21:00; Stop 12/06/18 at 21: 00; Status DC Amlodipine Besylate (Norvasc) 10 mg DAILY PO ; Start 12/06/18 at 09:00; Stop at 11:16; Status DC Triamterene/HCTZ (Maxzide 37.5/ 25mg) 1 tab DAILY PO ; Start 12/06/18 at 09:00; Stop 12/06/18 at 19:24; Status DC Carvedilol (Coreg) 12.5 mg BIDWMEALS PO ; Start 12/06/18 at 10:45; Stop at 11:16; Status DC Hydralazine HCl (Apresoline) 10 mg PRN Q4HRS PRN IV ELEVATED BP, SEE COMMENTS Last administered on 12/07/18at 06:36; Start 12/06/18 at 10:45 Labetalol HCl (Trandate) 200 mg BID PO Last administered on 12/07/18at 08:57; Start 12/06/18 at 11:15 Lisinopril (Prinivil) 10 mg DAILY PO Last administered on 12/06/18at 11:36; Start 12/06/18 at 11:15; Stop 12/06/18 at 19:17; Status DC Insulin Human Lispro (HumaLOG) 0-7 UNITS TIDWMEALS SQ Last administered on 12/07at 08:57; Start 12/06/18 at 12:00 Dextrose 12.5 gm PRN Q15MIN PRN IV SEE COMMENTS; Start 12/06/18 at 11:15 Metoprolol Succinate (Toprol Xl) 100 mg BID PO ; Start 12/06/18 at 21:00; Stop 12/06/18 at 21:00; Status DC Lisinopril (Prinivil) 10 mg BID PO Last administered on 12/07/18at 08:56; Start 12/06/18 at 21:00 Ondansetron HCl (Zofran) 4 mg PRN Q6HRS PRN IV NAUSEA/VOMITING Last administered on 12/07/18at 00:16; Start 12/07/18 at 00:15 Atorvastatin Calcium (Lipitor) 20 mg QHS PO ; Start 12/07/18 at 21:00 Metformin HCl (Glucophage) 500 mg BIDWMEALS PO ; Start 12/07/18 at 17:00 Active Scripts Active Reported Hydrocodone-Apap 5-325 (Hydrocodone Bit/Acetaminophen) 1 Each Tablet 1 Tab PO PRN Q6HRS PRN Tramadol Hcl (Tramadol HCl) 50 Mg Tablet 50 Mg PO PRN Q6HRS PRN LAST DOSE GIVEN: DATE: TIME: NEXT DOSE DUE: DATE: TIME: Nexium Capsule (Esomeprazole Magnesium) 40 Mg Capsule.dr 40 Mg PO DAILY LAST DOSE GIVEN: DATE: TIME: NEXT DOSE DUE: DATE: TIME: Temazepam 15 Mg Capsule 15 Mg PO QHS LAST DOSE GIVEN: DATE: TIME: NEXT DOSE DUE: DATE: TIME: Triamterene-Hctz 37.5-25 Mg Cp (Triamterene/Hydrochlorothiazid) 1 Each Capsule 1 Cap PO DAILY LAST DOSE GIVEN: DATE: TIME: NEXT DOSE DUE: DATE: TIME: Amlodipine Besylate 10 Mg Tablet 10 Mg PO DAILY LAST DOSE GIVEN: DATE: TIME: NEXT DOSE DUE: DATE: TIME: Atenolol (Atenolol) 25 Mg Tablet 25 Mg PO HS LAST DOSE GIVEN: DATE: TIME: NEXT DOSE DUE: DATE: TIME: Vitals/I & O Vital Sign - Last 24 Hours 12/06/18 12/06/18 12/06/18 12/06/18 10:30 11:00 11:15 11:30 Temp 98.1 Pulse 94 103 Resp 18 18 B/P (MAP) 198/88 (124) 199/101 199/101 (133) Pulse Ox 97 97 O2 Delivery Room Air Room Air Room Air 12/06/18 12/06/18 12/06/18 12/06/18 11:36 13:24 13:30 14:30 Pulse 88 88 82 Resp 20 18 18 B/P (MAP) 163/91 (115) 168/94 (118) Pulse Ox 97 97 O2 Delivery Room Air Room Air 12/06/18 12/06/18 12/06/18 12/06/18 15:00 16:00 16:00 17:00 Temp 98.4 Pulse 90 80 90 Resp 20 18 18 B/P (MAP) 158/84 (108) 158/84 (108) 172/99 (123) Pulse Ox 98 96 97 O2 Delivery Room Air Room Air Room Air Room Air 12/06/18 12/06/18 12/06/18 12/06/18 17:55 18:14 19:00 19:12 Pulse 90 85 94 Resp 18 B/P (MAP) 184/97 (126) 179/90 (119) Pulse Ox 97 O2 Delivery Room Air Room Air Room Air 12/06/18 12/06/18 12/06/18 12/06/18 20:00 20:00 20:31 20:31 Temp 98.2 Pulse 94 87 B/P (MAP) 176/92 (120) 167/73 Pulse Ox 95 95 O2 Delivery Room Air Room Air 12/06/18 12/06/18 12/06/18 12/06/18 20:32 21:28 21:58 22:18 Pulse 87 83 84 Resp 14 B/P (MAP) 167/73 151/79 (103) 163/89 (113) Pulse Ox 96 O2 Delivery Room Air Room Air Room Air 12/06/18 12/06/18 12/07/18 12/07/18 23:11 23:32 00:01 00:01 Temp 98.3 Pulse 87 88 88 Resp 16 16 B/P (MAP) 149/72 (97) 155/86 (109) 179/103 (128) Pulse Ox 98 O2 Delivery Room Air Room Air Room Air Room Air O2 Flow Rate 98.0 12/07/18 12/07/18 12/07/18 12/07/18 01:41 01:58 02:31 03:04 Pulse 85 92 91 82 Resp 20 16 B/P (MAP) 178/92 (120) 180/84 (116) 136/64 (88) 163/85 (111) O2 Delivery Room Air Room Air Room Air Room Air 12/07/18 12/07/18 12/07/18 12/07/18 04:06 04:28 04:45 05:00 Temp 97.0 Pulse 87 82 87 B/P (MAP) 150/77 (101) 140/75 (96) Pulse Ox 99 O2 Delivery Room Air Room Air Room Air Room Air 12/07/18 12/07/18 12/07/18 12/07/18 05:30 06:00 06:30 06:36 Pulse 86 88 84 B/P (MAP) 176/97 (123) 188/110 (136) 199/103 (135) 197/109 O2 Delivery Room Air Room Air Room Air 12/07/18 12/07/18 12/07/18 12/07/18 07:00 07:30 07:57 08:56 Pulse 88 84 84 Resp 16 B/P (MAP) 182/89 (120) 133/74 (93) 133/74 O2 Delivery Room Air Room Air Room Air 12/07/18 08:57 Pulse 84 B/P (MAP) 133/74 Intake and Output 12/06/18 12/06/18 12/07/18 15:01 23:01 07:01 Intake Total 1700 ml 250 ml 300 ml Output Total 600 ml 800 ml 200 ml Balance 1100 ml -550 ml 100 ml YASMIN CASPER [employer] Dec 07, 2018 10:21
[2018-12-07] MEDS ORDERED: LISINOPRIL 5 MG TABLET. PO ONE (11:00)
[2018-12-07] MEDS: traMADol 50 MG TABLET PO PRN (12:03)
--- NOTE | 2018-12-07 13:31 | EKG ---
[address] [address] Test Date: 2018-12-06 Test Time: 18:06:50 Pat Name: GILDA VERONICA Department: Room: [facility]06 1 Gender: F [employer] Professor: : 1965 Requested By: JAMILAH NELSON Order Number: [id number] Reading MD: Measurements Intervals [place] Rate: 85 P: -19 FL: 162 QRS: 7 QRSD: 66 T: 61 QT: 386 QTc: 465 Interpretive Statements SINUS RHYTHM LEFT ATRIAL ABNORMALITY QRS(T) CONTOUR ABNORMALITY CONSISTENT WITH ANTEROSEPTAL INFARCT AGE UNDETERMINED T ABNORMALITY IN ANTERIOR LEADS LATERAL LEADS ABNORMAL ECG RI6.01 No previous ECG available for comparison
[2018-12-07] MEDS: metFORMIN 500 MG TABLET PO SCH (17:08)
[2018-12-07] MEDS: amLODIPine BESYLATE 10 MG TABLET PO SCH (18:52)
[2018-12-07] MEDS: ACETAMINOPHEN 500 MG TABLET PO PRN (20:27)
[2018-12-07] MEDS: ATORVASTATIN CALCIUM 20 MG TABLET PO SCH (20:27)
[2018-12-07] MEDS: TEMAZEPAM 15 MG CAPSULE PO PRN (20:28)
[2018-12-07] MEDS: CYCLOBENZAPRINE 10 MG TABLET. PO PRN (22:23)
[2018-12-07] MEDS ORDERED: ACETAMINOPHEN 500 MG TABLET PO PRN (22:45)
[2018-12-08] VITALS (25 sets, daily range): BP systolic 105–197; BP diastolic 60–99
--- NOTE | 2018-12-08 04:18 | PN ---
DATE: 12/07/2018 SUBJECTIVE: This is a 53-year-old female, ICU bed 6, continues to have severe hypertensive urgency despite being on 4 different antihypertensives. Blood pressure is still running approximately upwards of 210 approximately over 110. Mean blood pressure 143, pulse 92. She is having somewhat of a headache. Apparently, Cardiology took her off her Trandate and blood pressure has gone back up. Anyway, the patient is having some muscle spasm, headache. Denies visual changes, blurred vision, double vision. Denies chest pain, abdominal pain. Denies any melena, hematochezia, or hematemesis. PHYSICAL EXAMINATION: LUNGS: Diminished, but clear. CARDIOVASCULAR: Regular sinus rhythm. ABDOMEN: Soft, nontender. EXTREMITIES: No clubbing, cyanosis, or edema. NEUROLOGIC: Stable. LABORATORY DATA: The patient's blood sugars are running high. She also tried going on an oral medication. We will start her on some metformin and the patient is spilling quite a bit of protein in her urine as well. IMPRESSION: Hypertensive urgency, resistant type 2 diabetes, muscle spasms. We will place her back on her Trandate and make further evaluation on her as indicated. JAMILAH NELSON MD DR: RICHARD/nick JOB#: [id number] / [id number]
--- NOTE | 2018-12-08 08:00 | RAD ---
CT of the head without contrast, 05/05/2016: HISTORY: Hypertension, nausea There are prominent beam hardening artifacts beneath the skull on this exam. The ventricles are within normal limits in size. There is no shift of the midline structures. There is no evidence of acute intracranial hemorrhage or mass effect. IMPRESSION: No acute intracranial abnormality is detected. Electronically signed by: Josh Sevilla MD (12/08/2018 7:56 AM) [facility]
[2018-12-08] MEDS: LISINOPRIL 10 MG TABLET PO SCH ×2 (08:25→18:14)
[2018-12-08] MEDS: metFORMIN 500 MG TABLET PO SCH ×2 (08:25→16:56)
[2018-12-08] MEDS: CYCLOBENZAPRINE 10 MG TABLET. PO PRN ×2 (08:26→20:53)
[2018-12-08] MEDS: LABETALOL HCL 200 MG TABLET PO SCH (09:00)
[2018-12-08] MEDS: amLODIPine BESYLATE 10 MG TABLET PO SCH (11:18)
[2018-12-08] MEDS: hydroCHLOROthiazide 12.5 MG CAPSULE PO SCH (11:18)
--- NOTE | 2018-12-08 11:26 | PDOC ---
PROGRESS NOTES Diagnosis Problem Problems Medical Problems: (1) Accelerated hypertension Status: Acute (2) Urinary tract infection Status: Acute Assessment Problems Medical Problems: (1) Accelerated hypertension Status: Acute (2) Urinary tract infection Status: Acute accelerated htn - off cardene drip, pressure elevated again this am. ok with norvasc as she refuses labetalol due to headache. add alpha astrid at HS and increase hydralazine. consider switch to aldactone for diuretic since hypokalemic on admission. will need BMP in about 1 week. check 24 hour urine for VMA/Metanephrines SAMANTHA - consider CPAP set auto titrate if possible during HS. instructed patient to call CPAP provider for new accessories and ask family to bring to hospital. Subjective not wanting to labetalol as she believes it is causing her headaches. no chest pain, no dyspnea, no palpitations. Objective Vital Signs Date Time Temp Pulse Resp B/P (MAP) Pulse Ox O2 Delivery O2 Flow Rate FiO2 12/08/18 11:18 88 12/08/18 08:44 197/98 (131) 100 Nasal Cannula 2.0 12/08/18 04:30 97.9 20 Intake and Output 12/08/18 07:01 Intake Total 1090 ml Output Total 400 ml Balance 690 ml Intake Oral 1090 ml Output Urine Total 400 ml # Voids 4 Physical Exam gen A/Ox3, NAD CV RRR, no s3/s4 lungs CTA abd + bowel sounds, non tender, soft ext no edema., + pulses Review of Relevant I have reviewed the following items libby (where applicable) has been applied. Labs Laboratory Tests Test 12/06/18 12:26 12/06/18 17:31 12/06/18 23:40 12/07/18 08:05 Glucose (Fingerstick) 267 mg/dL (70-99) 232 mg/dL (70-99) 167 mg/dL (70-99) 179 mg/dL (70-99) Test 12/07/18 11:59 12/07/18 17:11 12/07/18 21:22 12/08/18 07:49 Glucose (Fingerstick) 305 mg/dL (70-99) 180 mg/dL (70-99) 220 mg/dL (70-99) 174 mg/dL (70-99) Microbiology 12/05/18 Urine Culture - Final, Complete 12/05/18 Urine Culture Result 1 (VAISHNAVI) - Final, Complete Medications Current Medications Sodium Chloride (Normal Saline Flush) 10 ml QSHIFT PRN IV AFTER MEDS AND BLOOD DRAWS Last administered on 12/05/18at 19:54; Start 12/05/18 at 19:45; Stop at 16:17; Status DC Hydralazine HCl (Apresoline) 10 mg 1X ONCE IV Last administered on 12/05/18at 19:54; Start 12/05/18 at 20:00; Stop 12/05/18 at 20:01; Status DC Amlodipine Besylate (Norvasc) 5 mg 1X ONCE PO Last administered on 12/05/18at 19:54; Start 12/05/18 at 20:00; Stop 12/05/18 at 20:01; Status DC Nicardipine HCl 50 mg/Sodium Chloride 270 ml @ 27 mls/hr CONT PRN IV SEE I/O RECORD Last administered on 12/05/18at 22:49; Start 12/05/18 at 22:00; Stop 12/07 at 16:17; Status DC Ondansetron HCl (Zofran) 4 mg PRN Q4HRS PRN IV NAUSEA/VOMITING; Start 12/05/18 at 21:15; Stop 12/06/18 at 21:14; Status DC Sodium Chloride 1,000 ml @ 75 mls/hr [id number] IV Last administered on at 21:38; Start 12/05/18 at 21:01; Stop 12/06/18 at 13:40; Status DC Acetaminophen (Tylenol) 650 mg PRN Q4HRS PRN PO FEVER Last administered on 12/05at 23:18; Start 12/05/18 at 21:15; Stop 12/06/18 at 21:14; Status DC Ceftriaxone Sodium 1 gm/ Sodium Chloride 50 ml @ 100 mls/hr Q24H IV Last administered on 12/05/18at 21:38; Start 12/05/18 at 22:00; Stop 12/06/18 at 11:17 ; Status DC Ceftriaxone Sodium 1 gm/ Sodium Chloride 50 ml @ 100 mls/hr 1X ONCE IV ; Start 12/05/18 at 21:30; Stop 12/05/18 at 21:59; Status Cancel Sodium Chloride 50 ml @ As Directed STK-MED ONCE .ROUTE ; Start 12/05/18 at 21: 31; Stop 12/05/18 at 21:33; Status DC Ceftriaxone Sodium (Rocephin) 1 gm STK-MED ONCE IV ; Start 12/05/18 at 21:31; Stop 12/05/18 at 21:33; Status DC Potassium Chloride (Klor-Con) 40 meq 1X ONCE PO Last administered on at 23:18; Start 12/05/18 at 23:15; Stop 12/05/18 at 23:16; Status DC Acetaminophen/ Hydrocodone Bitart (Lortab 5/325) 1 tab PRN Q6HRS PRN PO PAIN Last administered on 12/07/18at 07:57; Start 12/06/18 at 07:30; Stop 12/07/18 at 16:17; Status DC Tramadol HCl (Ultram) 50 mg PRN Q6HRS PRN PO PAIN Last administered on at 12:03; Start 12/06/18 at 07:30; Stop 12/07/18 at 16:17; Status DC Pantoprazole Sodium (Protonix) 40 mg DAILYAC PO Last administered on 12/07/18at 07:57; Start 12/06/18 at 07:30; Stop 12/07/18 at 16:17; Status DC Temazepam (Restoril) 15 mg QHS PO Last administered on 12/06/18at 20:32; Start 12/06/18 at 21:00; Stop 12/07/18 at 16:17; Status DC Atenolol (Tenormin) 25 mg HS PO ; Start 12/06/18 at 21:00; Stop 12/06/18 at 21: 00; Status DC Amlodipine Besylate (Norvasc) 10 mg DAILY PO ; Start 12/06/18 at 09:00; Stop at 11:16; Status DC Triamterene/HCTZ (Maxzide 37.5/ 25mg) 1 tab DAILY PO ; Start 12/06/18 at 09:00; Stop 12/06/18 at 19:24; Status DC Carvedilol (Coreg) 12.5 mg BIDWMEALS PO ; Start 12/06/18 at 10:45; Stop at 11:16; Status DC Hydralazine HCl (Apresoline) 10 mg PRN Q4HRS PRN IV ELEVATED BP, SEE COMMENTS Last administered on 12/07/18at 06:36; Start 12/06/18 at 10:45; Stop 12/07/18 at 16:17; Status DC Labetalol HCl (Trandate) 200 mg BID PO Last administered on 12/07/18at 08:57; Start 12/06/18 at 11:15; Stop 12/07/18 at 16:17; Status DC Lisinopril (Prinivil) 10 mg DAILY PO Last administered on 12/06/18at 11:36; Start 12/06/18 at 11:15; Stop 12/06/18 at 19:17; Status DC Insulin Human Lispro (HumaLOG) 0-7 UNITS TIDWMEALS SQ Last administered on 12/07at 12:07; Start 12/06/18 at 12:00; Stop 12/07/18 at 16:17; Status DC Dextrose 12.5 gm PRN Q15MIN PRN IV SEE COMMENTS; Start 12/06/18 at 11:15; Stop 12/07/18 at 16:17; Status DC Metoprolol Succinate (Toprol Xl) 100 mg BID PO ; Start 12/06/18 at 21:00; Stop 12/06/18 at 21:00; Status DC Lisinopril (Prinivil) 10 mg BID PO Last administered on 12/07/18at 08:56; Start 12/06/18 at 21:00; Stop 12/07/18 at 10:43; Status DC Ondansetron HCl (Zofran) 4 mg PRN Q6HRS PRN IV NAUSEA/VOMITING Last administered on 12/07/18at 00:16; Start 12/07/18 at 00:15; Stop 12/07/18 at 16:17 ; Status DC Atorvastatin Calcium (Lipitor) 20 mg QHS PO Last administered on 12/07/18at 20: 27; Start 12/07/18 at 21:00 Metformin HCl (Glucophage) 500 mg BIDWMEALS PO Last administered on 12/08/18at 08:25; Start 12/07/18 at 17:00 Lisinopril (Prinivil) 20 mg BID PO Last administered on 12/08/18 08:25; Start 12/07/18 at 21:00 Lisinopril (Prinivil) 10 mg 1X ONCE PO Last administered on 12/07/18at 12:03; Start 12/07/18 at 11:00; Stop 12/07/18 at 11:01; Status DC Hydralazine HCl (Apresoline) 50 mg TID PO Last administered on 12/08/18at 08:26 ; Start 12/07/18 at 14:00; Stop 12/08/18 at 09:33; Status DC Hydralazine HCl (Apresoline) 10 mg PRN Q6HRS PRN IV ELEVATED BP, SEE COMMENTS Last administered on 12/07/18at 22:23; Start 12/07/18 at 18:45 Amlodipine Besylate (Norvasc) 10 mg DAILY PO Last administered on 12/08/18at 11: 18; Start 12/07/18 at 18:45 Temazepam (Restoril) 15 mg PRN QHS PRN PO INSOMNIA Last administered on at 20:28; Start 12/07/18 at 21:00 Acetaminophen (Tylenol) 1,000 mg PRN Q6HRS PRN PO PAIN / TEMP Last administered on 12/07/18at 20:27; Start 12/07/18 at 20:00 Ondansetron HCl (Zofran) 4 mg PRN Q6HRS PRN IV NAUSEA/VOMITING; Start 12/07/18 at 20:00 Cyclobenzaprine HCl (Flexeril) 10 mg PRN Q8HRS PRN PO MUSCLE SPASMS Last administered on 12/08/18at 08:26; Start 12/07/18 at 22:15 Labetalol HCl (Trandate) 200 mg BID PO ; Start 12/07/18 at 23:00; Stop 12/08/18 at 09:17; Status DC Acetaminophen (Tylenol) 500 mg PRN Q6HRS PRN PO PAIN / TEMP; Start 12/07/18 at 22:45 Hydrochlorothiazide (Microzide) 12.5 mg DAILY PO Last administered on at 11:18; Start 12/08/18 at 09:30 Doxazosin Mesylate (Cardura) 1 mg QHS PO ; Start 12/08/18 at 21:00 Hydralazine HCl (Apresoline) 100 mg BID PO ; Start 12/08/18 at 21:00 Active Scripts Active Reported Hydrocodone-Apap 5-325 (Hydrocodone Bit/Acetaminophen) 1 Each Tablet 1 Tab PO PRN Q6HRS PRN Tramadol Hcl (Tramadol HCl) 50 Mg Tablet 50 Mg PO PRN Q6HRS PRN LAST DOSE GIVEN: DATE: TIME: NEXT DOSE DUE: DATE: TIME: Nexium Capsule (Esomeprazole Magnesium) 40 Mg Capsule.dr 40 Mg PO DAILY LAST DOSE GIVEN: DATE: TIME: NEXT DOSE DUE: DATE: TIME: Temazepam 15 Mg Capsule 15 Mg PO QHS LAST DOSE GIVEN: DATE: TIME: NEXT DOSE DUE: DATE: TIME: Triamterene-Hctz 37.5-25 Mg Cp (Triamterene/Hydrochlorothiazid) 1 Each Capsule 1 Cap PO DAILY LAST DOSE GIVEN: DATE: TIME: NEXT DOSE DUE: DATE: TIME: Amlodipine Besylate 10 Mg Tablet 10 Mg PO DAILY LAST DOSE GIVEN: DATE: TIME: NEXT DOSE DUE: DATE: TIME: Atenolol (Atenolol) 25 Mg Tablet 25 Mg PO HS LAST DOSE GIVEN: DATE: TIME: NEXT DOSE DUE: DATE: TIME: Vitals/I & O Vital Sign - Last 24 Hours 12/07/18 12/07/18 12/07/18 12/07/18 11:30 12:00 12:03 12:03 Pulse 96 97 Resp 20 B/P (MAP) 198/99 (132) 198/101 Pulse Ox 99 O2 Delivery Room Air Room Air Room Air 12/07/18 12/07/18 12/07/18 12/07/18 12:33 13:03 13:58 14:30 Pulse 91 91 87 Resp 16 B/P (MAP) 188/91 (123) 188/91 191/96 (127) Pulse Ox 96 96 O2 Delivery Room Air Room Air 12/07/18 12/07/18 12/07/18 12/07/18 15:00 15:30 16:00 17:30 Temp 98.5 Pulse 88 86 96 Resp 19 B/P (MAP) 176/83 (114) 192/92 (125) 192/103 (132) Pulse Ox 97 O2 Delivery Room Air Room Air 12/07/18 12/07/18 12/07/18 12/07/18 18:00 18:52 19:00 20:04 Pulse 90 90 88 B/P (MAP) 224/109 (147) 224/109 182/90 (120) O2 Delivery Room Air Room Air 12/07/18 12/07/18 12/07/18 12/07/18 20:15 20:28 20:28 21:09 Temp 98.3 Pulse 91 91 91 92 B/P (MAP) 199/94 (129) 206/105 206/105 209/110 (143) Pulse Ox 99 O2 Delivery Room Air Nasal Cannula O2 Flow Rate 2.0 12/07/18 12/07/18 12/07/18 12/07/18 21:15 21:45 22:15 22:23 Pulse 92 90 92 91 B/P (MAP) 197/105 (135) 196/98 (130) 198/110 (139) 198/110 O2 Delivery Nasal Cannula Nasal Cannula Nasal Cannula O2 Flow Rate 2.0 2.0 2.0 12/07/18 12/07/18 12/07/18 12/07/18 22:45 23:00 23:11 23:45 Temp 98.3 Pulse 94 82 94 90 Resp 16 B/P (MAP) 189/94 (125) 166/65 171/87 (115) 128/73 (91) Pulse Ox 98 O2 Delivery Nasal Cannula Nasal Cannula Nasal Cannula O2 Flow Rate 2.0 2.0 2.0 12/07/18 12/08/18 12/08/18 12/08/18 23:45 00:15 00:30 00:45 Pulse 88 98 92 B/P (MAP) 105/60 (75) 154/85 (108) 157/82 (107) O2 Delivery Nasal Cannula Nasal Cannula Nasal Cannula Nasal Cannula O2 Flow Rate 2.0 2.0 2.0 2.0 12/08/18 12/08/18 12/08/18 12/08/18 01:03 01:28 01:59 02:28 Pulse 85 88 85 85 Resp 20 22 B/P (MAP) 146/80 (102) 142/77 (98) 130/70 (90) 138/62 (87) O2 Delivery Nasal Cannula Nasal Cannula Nasal Cannula Nasal Cannula O2 Flow Rate 2.0 2.0 2.0 2.0 12/08/18 12/08/18 12/08/18 12/08/18 03:04 03:31 04:00 04:30 Temp 97.9 Pulse 85 87 83 82 Resp 18 20 B/P (MAP) 165/82 (109) 134/62 (86) 143/76 (98) 137/69 (91) Pulse Ox 99 O2 Delivery Nasal Cannula Nasal Cannula Nasal Cannula Nasal Cannula O2 Flow Rate 2.0 2.0 2.0 2.0 12/08/18 12/08/18 12/08/18 12/08/18 04:30 05:00 05:26 05:56 Pulse 82 82 B/P (MAP) 143/74 (97) 166/85 (112) 149/84 (105) O2 Delivery Nasal Cannula Nasal Cannula Nasal Cannula Nasal Cannula O2 Flow Rate 2.0 2.0 2.0 2.0 12/08/18 12/08/18 12/08/18 12/08/18 06:26 08:00 08:25 08:26 Pulse 88 88 88 B/P (MAP) 174/98 (123) Pulse Ox 100 O2 Delivery Nasal Cannula Nasal Cannula O2 Flow Rate 2.0 2.0 12/08/18 12/08/18 08:44 11:18 Pulse 82 88 B/P (MAP) 197/98 (131) Pulse Ox 100 O2 Delivery Nasal Cannula O2 Flow Rate 2.0 Intake and Output 12/07/18 12/07/18 12/08/18 15:01 23:01 07:01 Intake Total 240 ml 550 ml 300 ml Output Total 400 ml Balance 240 ml 550 ml -100 ml YASMIN CASPER APRN Dec 08, 2018 11:26
--- NOTE | 2018-12-08 12:37 | PN ---
DATE: SUBJECTIVE: This is a 53-year-old female in with hypertensive urgency. The patient refused to take beta blockers, thinks they cause headaches. The patient's blood pressure down to the 170s this morning, pulse 82, afebrile, still trying to regulate her medications and find appropriate combination of antihypertensives to handle the very significant problem of her hypertension. OBJECTIVE: VITAL SIGNS: The patient's blood pressure this morning in the 170s/105, respiratory rate 18, pulse 80s, afebrile. GENERAL: The patient is alert and oriented. LUNGS: Clear. CARDIOVASCULAR: Stable. ABDOMEN: Soft, nontender. EXTREMITIES: No clubbing, cyanosis, or edema. NEUROLOGIC: Baseline, stable. DIAGNOSTIC DATA: The patient's CT scan unremarkable of her head. She was having nausea and headaches and so wanted to get that. The patient's ultrasound of the kidneys was unremarkable. ____ level pending. Blood sugars under better control. ASSESSMENT: The patient will continue to be monitored carefully, make further evaluation, hypertensive urgency, type 2 diabetes, proteinuria, hypokalemia. Probably need to see a publishing director on her discharge as well as continue to monitor her blood sugars. JAMILAH NELSON MD DR: RICHARD/nick JOB#: [id number] / [id number]
[2018-12-08] MEDS: hydrALAZINE 20 MG/ML VIAL. IV PRN (16:54)
[2018-12-08] MEDS: ATORVASTATIN CALCIUM 20 MG TABLET PO SCH (20:43)
[2018-12-08] MEDS: DOXAZOSIN MESYLATE 1 MG TABLET PO SCH (20:44)
[2018-12-08] MEDS: dilTIAZem HCL 30 MG TABLET PO SCH (22:14)
[2018-12-08] MEDS: TEMAZEPAM 15 MG CAPSULE PO PRN (22:55)
[2018-12-08] MEDS: ACETAMINOPHEN 500 MG TABLET PO PRN (23:05)
[2018-12-09] VITALS (16 sets, daily range): BP systolic 117–175; BP diastolic 59–113
[2018-12-09] MEDS: dilTIAZem HCL 30 MG TABLET PO SCH ×3 (08:05→22:58)
[2018-12-09] MEDS: metFORMIN 500 MG TABLET PO SCH ×2 (08:05→17:11)
[2018-12-09] MEDS: hydroCHLOROthiazide 12.5 MG CAPSULE PO SCH (09:12)
[2018-12-09] MEDS: LISINOPRIL 10 MG TABLET PO SCH ×2 (09:13→21:54)
[2018-12-09] MEDS: ATORVASTATIN CALCIUM 20 MG TABLET PO SCH (21:53)
[2018-12-09] MEDS: DOXAZOSIN MESYLATE 1 MG TABLET PO SCH (21:53)
[2018-12-10] MEDS: TEMAZEPAM 15 MG CAPSULE PO PRN (01:09)
--- NOTE | 2018-12-10 02:15 | PN ---
DATE: 12/09/2018 SUBJECTIVE: The patient in with accelerated hypertension, severe headache and nausea. The patient's blood pressure is gradually coming down. Last blood pressure reading of her in the chart blood pressure was 160/92, respiratory rate 18, pulse of approximately 100, although that is down from previous. The patient is alert and oriented. She said she is feeling somewhat better. We have added Cardizem to her drug regimen and seems to have slowed her heart rate down a little bit as well as helping that blood pressure as well as we are gradually bringing that down, so we made some progress there. The patient otherwise denies chest pain, shortness of breath. PHYSICAL EXAMINATION: GENERAL: The patient is alert and oriented. Speech fluent, spontaneous, and appropriate. LUNGS: Clear. CARDIOVASCULAR: Regular sinus rhythm. We will continue to adjust her medications and make further evaluation on her. IMPRESSION: We have hypertensive urgency, headache, nausea, sinus tachycardia. PLAN: We will go ahead and continue to monitor the patient accordingly and adjust her medications and go from there. JAMILAH NELSON MD DR: RICHARD/nick JOB#: [id number] / [id number]
[2018-12-10 05:26] VITALS: BP 167/105
[2018-12-10] MEDS: dilTIAZem HCL 30 MG TABLET PO SCH (06:08)
[2018-12-10] MEDS: metFORMIN 500 MG TABLET PO SCH (08:52)
[2018-12-10] MEDS: LISINOPRIL 10 MG TABLET PO SCH (08:54)
[2018-12-10] MEDS: hydroCHLOROthiazide 12.5 MG CAPSULE PO SCH (08:54)
[2018-12-10] MEDS ORDERED: CYCL-331 PO (11:45)
[2018-12-10] MEDS ORDERED: HYDR-2869 PO (11:45)
[2018-12-10] MEDS ORDERED: METF500T PO (11:45)
[2018-12-10] MEDS ORDERED: DOXA1TAB PO (11:45)
[2018-12-10] MEDS ORDERED: DILT60TA PO (11:45)
[2018-12-10] MEDS ORDERED: LISI10TA2 PO (11:45)
[2018-12-10] MEDS ORDERED: ATOR20TA58 PO (11:45)
[2018-12-10] MEDS ORDERED: ASPI-630 PO (11:51)
[2018-12-10 12:35] VITALS: BP 184/110
--- NOTE | 2018-12-10 13:52 | DS ---
DATE OF DISCHARGE: HOSPITAL COURSE: A 53-year-old female came in through the office initially and then the Emergency Room. The patient was noted to have extremely high blood pressure and was admitted with accelerated hypertension. Blood pressure was in excess of 220 and the diastolic over 100. The patient was having some headaches, some nausea with this, pounding and throbbing in her head. The patient had a thorough workup including head CT, which was unremarkable. She had an ultrasound of her renal area. There was no renal stenosis. Chest x-ray was unremarkable. Echocardiogram was read out by Dr. Perez and he said that she had good ejection fraction of 55-60% with mild concentric left ventricular hypertrophy. The patient otherwise made good progress and took some doing. She claims she was allergic to BETA BLOCKERS and refused to take those. Heart rate was on the high side. We had to juggle multiple antihypertensives and at discharge, she was on probably around 4 or 5 different antihypertensives. It was also seen that she was a diabetic that was not controlled, so we started her on metformin and this seemed to help bring down her sugars gradually and we will continue to monitor those. Overall, the patient did remarkably well. Her last blood pressure was 167/105, pulse of 110, respiratory rate 20. She was afebrile. See discharge medication and she will be on a low sodium diet, decreased activity, measure blood pressure. Prescription is faxed to [facility]. IMPRESSION: Hypertensive urgency with symptoms, sinus tachycardia, type 2 diabetes, borderline obesity, A1c was 7.8. Cholesterol was also high at 150, LDL cholesterol of 227, triglycerides were high at 221. DIAGNOSES: She had hypercholesterolemia, familial; hypertriglyceridemia; hypokalemia. DISPOSITION: She will be discharged home, followed up as an outpatient as indicated, on all the above-mentioned situations. JAMILAH NELSON MD DR: RICHARD/nick JOB#: [id number] / [id number]
[2018-12-10] MEDS ORDERED: dilTIAZem HCL 30 MG TABLET PO SCH (14:00)
[2018-12-13 09:15] LABS: VMA UR 3.9 mg/L (Undefined)
== END 2018-12-10 15:07 | disposition home or self-care (01) | DRG 305 ==
LOC: ER 18:02 → UNDOADMIN 21:19 → ICU 21:19 → 1 SOUTH 21:19 → ICU 12-07 16:14 → 1 SOUTH 12-09 18:30
PROVIDERS: ADMIT Family Medicine; ATTEND Family Medicine
DX: I16.0 Hypertensive urgency (principal); N39.0 Urinary tract infection, site not specified; E11.9 Type 2 diabetes mellitus without complications; E66.9 Obesity, unspecified; E78.00 Pure hypercholesterolemia, unspecified; E78.1 Pure hyperglyceridemia; E87.6 Hypokalemia; G47.33 Obstructive sleep apnea (adult) (pediatric); I11.9 Hypertensive heart disease without heart failure; Z88.8 Allergy status to other drugs, medicaments and biological substances; Z68.34 Body mass index [BMI] 34.0-34.9, adult; Z79.899 Other long term (current) drug therapy
CPT/HCPCS: 36415; 70450; 71046; 76770; 80048; 80053; 80061; 81001; 82550; 82947; 83036; 84443; 84484; 85025; 87086; 87641; 93005; 93306; 96365; 96375; J0360; J0696; J1815; J2405; J7050; 99291-25; J7030